=== PATIENT | female | born 1960 | race Caucasian/White ===

== ENCOUNTER 2021-05-05 14:56 | Inpatient (IN) ==
[2021-05-05] MEDS ORDERED: Naloxone 0.4 MG/ML INJ IVP PRN ×2 (16:57→16:58)
[2021-05-05] MEDS ORDERED: Acetaminophen 325 MG TABLET PO PRN (16:58)
[2021-05-05] MEDS ORDERED: Ondansetron 4 MG/2 ML VIAL IVP PRN (16:58)
[2021-05-05] MEDS ORDERED: Morphine Sulfate 2 MG/ML SYRINGE IVP ONE (17:10)
[2021-05-05] MEDS ORDERED: *HR* Dextrose 50 % in Water (Syg) 50 ML SYRINGE IVP PRN (17:50)
[2021-05-05] MEDS ORDERED: Dextrose 4 GM Chewable Tablets PO PRN ×2 (17:50)
[2021-05-05] MEDS ORDERED: D5% in Water 1,000 ML IVC PRN (17:50)
[2021-05-05 18:00] LABS: Mean Platelet Volume 9.2 fL (9.4-12.4); Red Cell Distribution Width 13.3 % (11.5-14.5)
[2021-05-05] MEDS ORDERED: Vancomycin 1,500 MG/265 ML IV.SOLN IVPB SCH ×3 (18:00→20:00)
[2021-05-05 18:01] LABS: Hematocrit 38.9 % (35.3-44.9); Hemoglobin 13.1 g/dL (11.5-15.4); Mean Corpuscular HGB Conc 33.7 g/dL (31.6-35.5); Mean Corpuscular Hemoglobin 29.4 pg (28.0-33.3); Mean Corpuscular Volume 87.4 fL (83.0-100.0); Platelet Count 267 K/mcL (140-400); Red Blood Count 4.45 M/mcL (3.82-4.97); White Blood Count 27.7 K/mcL (4.3-11.1)
[2021-05-05] MEDS: Piperacillin/Tazobactam 3.375 GM in 0.9 % Sodium Chloride Mini Bag 100 ML IVPB SCH (18:02)
[2021-05-05 18:11] LABS: INR 1.4; Prothrombin Time 15.2 Seconds (9.4-12.1)
[2021-05-05] MEDS ORDERED: Perflutren Lipid Microsphere 1.3 ML in 0.9 % Sodium Chloride 8.7 ML IVP PRN (18:12)
[2021-05-05 18:13] LABS: Activated Partial Thrombo Time 33.6 Seconds (26.0-36.0)
[2021-05-05] MEDS ORDERED: Nitroglycerin 0.4 MG TAB.SUBL SL PRN (18:25)
[2021-05-05 18:27] LABS: Troponin I 0.07 ng/mL (< 0.04)
[2021-05-05 18:29] LABS: Alanine Aminotransferase 19 Units/L (7-52); Albumin 3.6 g/dL (3.5-5.7); Albumin/Globulin Ratio 1.1 (1.1-2.2); Alkaline Phosphatase 109 Units/L (34-104); Aspartate Amino Transferase 22 Units/L (13-39); BUN/Creatinine Ratio 22 (6-26); Blood Urea Nitrogen 22 mg/dL (8-23); Calcium 8.6 mg/dL (8.6-10.3); Carbon Dioxide 22 mEq/L (23-29); Chloride 97 mEq/L (98-107); Globulin 3.3 g/dL (2.4-3.5); Glucose 327 mg/dL (70-105); Magnesium 1.2 mg/dL (1.6-2.6); Osmolality,Calculated 284 (280-300); Potassium 4.2 mEq/L (3.5-5.1); Sodium 129 mEq/L (136-145); Total Protein 6.9 g/dL (6.4-8.9); eGFR For African Americans > 60 (> 60); eGFR For Non-African Americans 57 (> 60)
[2021-05-05] MEDS: Insulin LISPRO 300 UNITS/3 ML VIAL SUBQ SCH (18:31)
[2021-05-05] MEDS ORDERED: *HR* Heparin 5,000 UNIT/ML VIAL IVP PRN ×2 (19:05)
[2021-05-05] MEDS ORDERED: *HR* Heparin 5,000 UNIT/ML VIAL IVP ONE (19:05)
[2021-05-05 19:07] LABS: Lymphocytes # 2.2 K/mcL (0.6-4.6); Monocytes # 0.6 K/mcL (0.0-1.3); Neutrophils # 24.9 K/mcL (1.6-8.9)
[2021-05-05] MEDS ORDERED: *HR* OxyCODONE/APAP 5/325 TABLET PO PRN (19:07)
[2021-05-05 19:08] LABS: Platelet Estimate Normal (Normal)
[2021-05-05] MEDS ORDERED: Heparin 25,000UNIT/250ML 1/2NS 25,000 UNIT/250 ML IV.SOLN IVC SCH ×2 (19:15→19:21)
[2021-05-05] MEDS ORDERED: Ipratropium/Albuterol Neb 3 ML ONE (19:48)
[2021-05-05] MEDS: Ipratropium/Albuterol Neb 3 ML IH SCH (19:51)
[2021-05-05] MEDS ORDERED: *HR* LORazepam 2 MG/ML VIAL IVP ONE (19:58)
[2021-05-05 20:01] LABS: Estimated Average Glucose 315 mg/dl; Hemoglobin A1C 12.6 %
[2021-05-05 21:18] LABS: Hematocrit 35.6 % (35.3-44.9); Mean Corpuscular HGB Conc 33.7 g/dL (31.6-35.5); Mean Corpuscular Hemoglobin 29.3 pg (28.0-33.3); Mean Corpuscular Volume 86.8 fL (83.0-100.0); Mean Platelet Volume 9.2 fL (9.4-12.4); Platelet Count 267 K/mcL (140-400); Red Cell Distribution Width 13.3 % (11.5-14.5); White Blood Count 16.2 K/mcL (4.3-11.1)
[2021-05-05 21:26] LABS: Heparin anti-factor XA UFH < 0.04 IU/mL (0.30-0.70); INR 1.5; Prothrombin Time 16.8 Seconds (9.4-12.1)
[2021-05-06] MEDS ORDERED: Albumin 25% 25gram/100mL 25 GM/100 ML IV.SOLN IVPB ONE (00:32)
[2021-05-06 01:11] LABS: Hematocrit 35.7 % (35.3-44.9); Hemoglobin 12.1 g/dL (11.5-15.4); Mean Corpuscular HGB Conc 33.9 g/dL (31.6-35.5); Mean Corpuscular Hemoglobin 29.7 pg (28.0-33.3); Mean Corpuscular Volume 87.7 fL (83.0-100.0); Mean Platelet Volume 9.5 fL (9.4-12.4); Platelet Count 282 K/mcL (140-400); Red Blood Count 4.07 M/mcL (3.82-4.97); Red Cell Distribution Width 13.3 % (11.5-14.5); White Blood Count 22.5 K/mcL (4.3-11.1)
[2021-05-06] MEDS: Insulin LISPRO 300 UNITS/3 ML VIAL SUBQ SCH ×4 (01:11→17:53)
[2021-05-06 01:33] LABS: Calcium 8.5 mg/dL (8.6-10.3); Potassium 3.8 mEq/L (3.5-5.1); Troponin I 0.07 ng/mL (< 0.04)
[2021-05-06 01:57] LABS: Lymphocytes # 1.4 K/mcL (0.6-4.6); Monocytes # 1.4 K/mcL (0.0-1.3); Neutrophils # 19.8 K/mcL (1.6-8.9)
[2021-05-06 01:58] LABS: Platelet Estimate Normal (Normal)
[2021-05-06] MEDS: Piperacillin/Tazobactam 3.375 GM in 0.9 % Sodium Chloride Mini Bag 100 ML IVPB SCH ×3 (02:13→17:51)
[2021-05-06] MEDS ORDERED: rOPINIRole 1 MG TABLET PO ONE (02:45)
[2021-05-06 03:35] LABS: Albumin 3.4 g/dL (3.5-5.7)
[2021-05-06] MEDS: Ipratropium/Albuterol Neb 3 ML IH SCH ×4 (03:35→21:26)
[2021-05-06] MEDS ORDERED: *HR* Heparin 5,000 UNIT/ML VIAL SQ SCH (06:00)
[2021-05-06] MEDS: PARoxetine 10 MG TABLET PO SCH (09:10)
[2021-05-06] MEDS: Aspirin 81 MG TAB.CHEW PO SCH (09:11)
[2021-05-06] MEDS: *HR* OxyCODONE Immed Rel 5 MG TABLET PO PRN ×3 (09:11→21:42)
[2021-05-06] MEDS ORDERED: 0.9 % Sodium Chloride 250 ML IVC ONE (10:30)
[2021-05-06] MEDS: 0.9 % Sodium Chloride 1,000 ML IVC SCH ×2 (10:58→21:41)
[2021-05-06] MEDS: Azithromycin 500 MG in 0.9 % Sodium Chloride 250 ML IVPB SCH (14:42)
[2021-05-06] MEDS: rOPINIRole 1 MG TABLET PO SCH (21:42)
[2021-05-07] MEDS: Insulin LISPRO 300 UNITS/3 ML VIAL SUBQ SCH ×4 (01:12→17:28)
[2021-05-07 02:28] LABS: Hematocrit 32.6 % (35.3-44.9); Hemoglobin 10.6 g/dL (11.5-15.4); Mean Corpuscular HGB Conc 32.5 g/dL (31.6-35.5); Mean Corpuscular Hemoglobin 29.6 pg (28.0-33.3); Mean Corpuscular Volume 91.1 fL (83.0-100.0); Mean Platelet Volume 10.8 fL (9.4-12.4); Platelet Count 180 K/mcL (140-400); Red Blood Count 3.58 M/mcL (3.82-4.97); Red Cell Distribution Width 13.5 % (11.5-14.5); White Blood Count 11.8 K/mcL (4.3-11.1)
[2021-05-07 02:43] LABS: BUN/Creatinine Ratio 27 (6-26); Blood Urea Nitrogen 20 mg/dL (8-23); Calcium 8.2 mg/dL (8.6-10.3); Carbon Dioxide 20 mEq/L (23-29); Chloride 104 mEq/L (98-107); Glucose 183 mg/dL (70-105); Osmolality,Calculated 283 (280-300); Potassium 4.2 mEq/L (3.5-5.1); Sodium 133 mEq/L (136-145); eGFR For African Americans > 60 (> 60); eGFR For Non-African Americans > 60 (> 60)
[2021-05-07] MEDS: Ipratropium/Albuterol Neb 3 ML IH SCH ×4 (04:08→22:41)
[2021-05-07] MEDS: Piperacillin/Tazobactam 3.375 GM in 0.9 % Sodium Chloride Mini Bag 100 ML IVPB SCH ×3 (04:35→17:28)
[2021-05-07] MEDS: *HR* OxyCODONE Immed Rel 5 MG TABLET PO PRN ×3 (05:30→17:28)
[2021-05-07] MEDS: PARoxetine 10 MG TABLET PO SCH (08:26)
[2021-05-07] MEDS: Aspirin 81 MG TAB.CHEW PO SCH (08:26)
[2021-05-07 09:07] LABS: Bacteria,Urine Few per hpf (None-Few); Bilirubin,Urine Negative (Negative); Blood,Urine Negative (Negative); Budding Yeast,Urine Many per hpf (None Seen); Clarity,Urine Turbid (Clear); Color,Urine Yellow (Yellow); Glucose,Urine (UA) Normal (Normal); Ketones,Urine 20 mg/dL (Negative); Leukocyte Esterase,Urine Large (Negative); Nitrite,Urine Negative (Negative); Protein,Urine 70 mg/dL (Neg-Trace); RBC,Urine 0-3 per hpf (0-3); Specific Gravity,Urine 1.029 (1.010-1.025); Squamous Epithelial Cell,Urine Few per hpf (None-Few); Uric Acid Crystals,Urine Present per hpf; Urobilinogen,Urine Normal (Normal); WBC,Urine 15-30 per hpf (0-3)
[2021-05-07] MEDS: Fluconazole 40 MG/ML UDC PO SCH (10:32)
[2021-05-07] MEDS: *HR* Rivaroxaban 10 MG TABLET PO SCH (15:37)
[2021-05-07] MEDS: Azithromycin 500 MG in 0.9 % Sodium Chloride 250 ML IVPB SCH (15:37)
[2021-05-07] MEDS: rOPINIRole 1 MG TABLET PO SCH (21:27)
[2021-05-08] MEDS: Insulin LISPRO 300 UNITS/3 ML VIAL SUBQ SCH ×4 (00:29→17:16)
[2021-05-08] MEDS: *HR* OxyCODONE Immed Rel 5 MG TABLET PO PRN ×4 (00:30→20:05)
[2021-05-08] MEDS: Piperacillin/Tazobactam 3.375 GM in 0.9 % Sodium Chloride Mini Bag 100 ML IVPB SCH ×3 (02:30→17:17)
[2021-05-08] MEDS: Ipratropium/Albuterol Neb 3 ML IH SCH ×5 (03:48→20:19)
[2021-05-08 06:43] LABS: Basophils # 0.1 K/mcL (0.0-0.2); Basophils % 1.5 %; Eosinophils # 0.7 K/mcL (0.0-0.6); Eosinophils % 8.5 %; Hematocrit 32.7 % (35.3-44.9); Hemoglobin 10.7 g/dL (11.5-15.4); Immature Granulocytes % 0.6 % (0-4); Lymphocytes # 1.7 K/mcL (0.6-4.6); Lymphocytes % 22.4 %; Mean Corpuscular HGB Conc 32.7 g/dL (31.6-35.5); Mean Corpuscular Hemoglobin 28.5 pg (28.0-33.3); Mean Corpuscular Volume 87.2 fL (83.0-100.0); Mean Platelet Volume 9.4 fL (9.4-12.4); Monocytes # 0.6 K/mcL (0.0-1.3); Monocytes % 7.9 %; Neutrophils # 4.6 K/mcL (1.6-8.9); Platelet Count 278 K/mcL (140-400); Red Blood Count 3.75 M/mcL (3.82-4.97); Red Cell Distribution Width 13.6 % (11.5-14.5); Segmented Neutrophils % 59.1 %; White Blood Count 7.8 K/mcL (4.3-11.1)
[2021-05-08 07:07] LABS: BUN/Creatinine Ratio 21 (6-26); Blood Urea Nitrogen 16 mg/dL (8-23); Calcium 8.7 mg/dL (8.6-10.3); Carbon Dioxide 21 mEq/L (23-29); Chloride 105 mEq/L (98-107); Glucose 142 mg/dL (70-105); Osmolality,Calculated 284 (280-300); Potassium 3.6 mEq/L (3.5-5.1); Sodium 135 mEq/L (136-145); eGFR For African Americans > 60 (> 60); eGFR For Non-African Americans > 60 (> 60)
[2021-05-08] MEDS: Fluconazole 40 MG/ML UDC PO SCH (09:12)
[2021-05-08] MEDS: PARoxetine 10 MG TABLET PO SCH (09:12)
[2021-05-08] MEDS: Aspirin 81 MG TAB.CHEW PO SCH (09:12)
[2021-05-08] MEDS: lisinopriL 5 MG TABLET PO SCH (11:29)
[2021-05-08] MEDS: carvediloL 6.25 MG TABLET PO SCH ×2 (11:29→17:16)
[2021-05-08] MEDS ORDERED: GuaiFENesin/Dextromethorphan TABLET PO PRN (14:20)
[2021-05-08] MEDS: Azithromycin 500 MG in 0.9 % Sodium Chloride 250 ML IVPB SCH (15:31)
[2021-05-08] MEDS: *HR* Rivaroxaban 10 MG TABLET PO SCH (17:16)
[2021-05-08] MEDS ORDERED: Albuterol 2.5 MG/3 ML NEBULIZER IH PRN (17:26)
[2021-05-08] MEDS: rOPINIRole 1 MG TABLET PO SCH (20:05)
[2021-05-09] MEDS: Insulin LISPRO 300 UNITS/3 ML VIAL SUBQ SCH ×3 (00:37→12:00)
[2021-05-09] MEDS: Piperacillin/Tazobactam 3.375 GM in 0.9 % Sodium Chloride Mini Bag 100 ML IVPB SCH ×2 (02:41→09:12)
[2021-05-09] MEDS: *HR* OxyCODONE Immed Rel 5 MG TABLET PO PRN ×2 (02:47→09:08)
[2021-05-09] MEDS: Ipratropium/Albuterol Neb 3 ML IH SCH ×2 (03:40→07:44)
[2021-05-09] MEDS: Aspirin 81 MG TAB.CHEW PO SCH (09:07)
[2021-05-09] MEDS: PARoxetine 10 MG TABLET PO SCH (09:07)
[2021-05-09] MEDS: carvediloL 6.25 MG TABLET PO SCH (09:07)
[2021-05-09] MEDS: lisinopriL 5 MG TABLET PO SCH (09:08)
[2021-05-09] MEDS: Fluconazole 40 MG/ML UDC PO SCH (10:37)
[2021-05-09 12:06] VITALS: BP 153/89; PULSE 70; TEMP 97.7; O2SAT 93
== END 2021-05-09 14:07 | disposition home health service (06) | DRG 871 ==
LOC: 2ANU → SUATTDRO 05-06 10:47
PROVIDERS: ADMIT Student in an Organized Health Care Education/Training Program; ATTEND Internal Medicine